=== PATIENT | male | born 1970 | race African-American/Black ===

== ENCOUNTER 2022-10-05 18:28 | Inpatient (IN) | payer MEDICAID ==
[~2022-10-05] VITALS: Ht 175.3 cm; Wt 54.4 kg
[2022-10-05 19:54] LABS: HEMATOCRIT. 31.1 % (42.0-52.0); HEMOGLOBIN. 9.9 g/dL (14.0-18.0); MEAN CORPUSCULAR HEMOGLOBIN 22.5 pg (28.0-32.0); MEAN CORPUSCULAR VOLUME 70.4 fL (80.0-94.0); MEAN PLATELET VOLUME 6.7 fl (7.4-10.4); PLATELET 345 x1000/uL (130-400); RED BLOOD CELL COUNT 4.41 mill/uL (4.7-6.1); RED CELL DISTRIBUTION WIDTH 22.2 % (11.6-14.6)
[2022-10-05 20:01] LABS: CHLORIDE 80 mEq/L (98-107)
[2022-10-05 20:03] LABS: INR 1.1; PROTHROMBIN TIME 11.4 sec (9.6-11.0)
[2022-10-05 20:12] LABS: ETHANOL BLOOD 101 mg/dL (-10)
[2022-10-05] MEDS ORDERED: KCL 20MEQ/100ML PREMIX 100 ML IV ONE (21:00)
[2022-10-05] MEDS ORDERED: MAGNESIUM OXIDE 400MG TABLET PO SCH (21:00)
[2022-10-05] MEDS ORDERED: POTASSIUM CHLORIDE 20MEQ TABLET SR PO ONE (21:00)
[2022-10-05] MEDS ORDERED: SODIUM CHLORIDE 0.9% 1,000 ML IV ONE (21:00)
[2022-10-05 21:16] LABS: PLATELET ESTIMATE NORMAL
[2022-10-05] MEDS ORDERED: ONDANSETRON HCL 4MG/2ML INJ IV ONE (21:30)
[2022-10-05] MEDS ORDERED: SODIUM CHLORIDE 3% 500ML IV SOLN IV ONE (21:30)
[2022-10-05] MEDS ORDERED: DESMOPRESSIN ACETATE 4MCG/ML AMP IV ONE (21:30)
[2022-10-05] MEDS ORDERED: SODIUM CHLORIDE 3% 150 ML IV NR (21:45)
[2022-10-05] MEDS ORDERED: MORPHINE SULFATE 4 MG/ML CPJ (NOT FOR IM USE) IV ONE (22:45)
[2022-10-06] MEDS ORDERED: PANTOPRAZOLE SODIUM 40 MG/VIAL IV ONE (00:30)
[2022-10-06] MEDS ORDERED: ACETAMINOPHEN 325MG TABLET PO PRN (00:30)
[2022-10-06] MEDS ORDERED: LORAZEPAM 2MG/ML CPJ IV PRN (00:30)
[2022-10-06] MEDS ORDERED: MAGNESIUM/ALUMINUM HYDROXIDE/SIMETHICONE 30ML UDC PO PRN (00:30)
[2022-10-06] MEDS ORDERED: DOCUSATE SODIUM 100MG CAPSULE PO PRN (00:30)
[2022-10-06] MEDS ORDERED: METOCLOPRAMIDE HCL 10MG/2ML VIAL IV ONE (00:30)
[2022-10-06] MEDS ORDERED: ONDANSETRON HCL 4MG/2ML INJ IV PRN (00:30)
[2022-10-06] MEDS ORDERED: CLONIDINE 0.1MG TABLET PO PRN (00:30)
[2022-10-06] MEDS ORDERED: GUAIFENESIN 200MG/10ML SUGAR FREE UDC PO PRN (00:30)
[2022-10-06] MEDS ORDERED: IPRATROPIUM/ALBUTEROL 0.5-3(2.5)MG/3ML NEB HHN PRN (00:30)
[2022-10-06] MEDS ORDERED: SODIUM CHLORIDE 0.9% 1,000 ML IV SCH ×3 (00:30→17:00)
[2022-10-06] MEDS ORDERED: METH-773 PO (00:56)
[2022-10-06] MEDS ORDERED: MVI, ADULT NO.1 10 ML, FOLIC ACID 1 MG, THIAMINE HCL 100 MG in SODIUM CHLORIDE 0.9% 1,0... IV SCH ×4 (02:00)
[2022-10-06] MEDS ORDERED: POTASSIUM CHLORIDE INJ 30 MEQ in DEXT 5%/0.9% NACL 1,000 ML IV ONE (03:00)
[2022-10-06 05:03] LABS: HEMATOCRIT. 25.3 % (42.0-52.0); HEMOGLOBIN. 8.2 g/dL (14.0-18.0); MEAN CORPUSCULAR HEMOGLOBIN 22.8 pg (28.0-32.0); MEAN CORPUSCULAR VOLUME 70.3 fL (80.0-94.0); MEAN PLATELET VOLUME 6.9 fl (7.4-10.4); PLATELET 295 x1000/uL (130-400); RED CELL DISTRIBUTION WIDTH 22.3 % (11.6-14.6)
[2022-10-06 05:06] LABS: CHLORIDE 92 mEq/L (98-107)
[2022-10-06 05:36] LABS: CREATINE KINASE 232 IU/L (39-308)
[2022-10-06 05:37] LABS: HDL CHOLESTEROL 90 mg/dL (40-59); LDL CHOLESTEROL 18 mg/dL (5-100)
[2022-10-06 05:51] LABS: FOLIC ACID (FOLATE) SERUM >20 ng/mL ng/mL (>5.38); VITAMIN B12 SERUM 912 pg/mL (211-911)
[2022-10-06] MEDS ORDERED: CHLORDIAZEPOXIDE 25MG CAPSULE PO SCH (06:00)
[2022-10-06 06:44] LABS: TOTAL IRON BINDING CAPACITY 349 ug/dL (250-450)
[2022-10-06 07:28] LABS: FERRITIN 15 ng/mL (22-322)
[2022-10-06 07:36] LABS: PLATELET ESTIMATE NORMAL
[2022-10-06] MEDS ORDERED: PANTOPRAZOLE 40MG DR TABLET PO SCH (07:50)
[2022-10-06] MEDS: METHOCARBAMOL 500MG TABLET PO SCH ×3 (08:55→16:27)
[2022-10-06] MEDS: HYDROCODONE/ACETAMINOPHEN 5/325MG TABLET PO PRN ×3 (08:56→21:09)
[2022-10-06] MEDS: ENOXAPARIN 40MG/0.4ML SYR SUBCUT SCH (08:56)
[2022-10-06] MEDS ORDERED: PANTOPRAZOLE SODIUM 40 MG/VIAL IV SCH (09:00)
[2022-10-06] MEDS: FERROUS SULFATE 325MG TABLET PO SCH (09:00)
[2022-10-06] MEDS ORDERED: CHLORDIAZEPOXIDE 25MG CAPSULE PO PRN (12:30)
[2022-10-06 12:45] VITALS: BP 140/91; PULSE 91; RESP 18; TEMP 97.9
[2022-10-06] MEDS ORDERED: MAGNESIUM 4 G PREMIX 100 ML IV SCH (13:00)
[2022-10-06] MEDS ORDERED: KCL 20MEQ/100ML PREMIX 100 ML IV SCH (13:00)
[2022-10-06 14:00] VITALS: BP 145/91; PULSE 85; RESP 16; TEMP 97.9
[2022-10-06] MEDS: KCL 20MEQ/100ML PREMIX 100 ML IV SCH ×2 (15:21→16:24)
[2022-10-06 16:00] VITALS: BP 135/89; PULSE 88; RESP 16; TEMP 98
[2022-10-06] MEDS ORDERED: NALOXONE HCL 0.4MG/ML VIAL IV PRN (17:30)
[2022-10-06] MEDS: DEXT 5%/0.9% NACL 1,000 ML IV SCH (17:43)
[2022-10-06 17:50] LABS: PHOSPHORUS 2.1 mg/dL (2.5-4.9)
[2022-10-06 17:54] LABS: CREATINE KINASE 206 IU/L (39-308)
[2022-10-06 18:00] VITALS: BP 138/89; PULSE 103; RESP 18; TEMP 97.9
[2022-10-06 20:00] VITALS: BP 143/80; PULSE 106; TEMP 97.8; TEMP 99.3
[2022-10-06] MEDS: PANTOPRAZOLE SODIUM 40 MG/VIAL IV SCH (21:08)
[2022-10-06 22:00] VITALS: BP 138/75; PULSE 88; RESP 4
[2022-10-06] MEDS ORDERED: POTASSIUM CHLORIDE 20MEQ TABLET SR PO NR (22:00)
[2022-10-06 22:02] LABS: CHLORIDE 97 mEq/L (98-107)
[2022-10-07] VITALS (10 sets, daily range): BP systolic 112–140; BP diastolic 68–99; PULSE 85–109; RESP 19–22; TEMP 98–98.4
[2022-10-07] MEDS: HYDROCODONE/ACETAMINOPHEN 5/325MG TABLET PO PRN ×3 (03:04→20:47)
[2022-10-07 03:43] LABS: CLARITY URINE CLEAR (CLEAR); COLOR URINE YELLOW (YELLOW); KETONES URINE NEGATIVE (NEGATIVE); LEUKOCYTE ESTERASE URINE NEGATIVE (NEGATIVE); NITRITE URINE NEGATIVE (NEGATIVE); OCCULT BLOOD URINE NEGATIVE (NEGATIVE); PROTEIN URINE NEGATIVE (NEGATIVE); SPECIFIC GRAVITY URINE 1.004 (1.005-1.030); UROBILINOGEN URINE 0.2 E.U./dL (0.2-1.0)
[2022-10-07 03:54] LABS: *AMPHETAMINES SCREEN URINE NEGATIVE (NEGATIVE); *BARBITURATES SCREEN URINE NEGATIVE (NEGATIVE); *BENZODIAZEPINES SCREEN URINE NEGATIVE (NEGATIVE); *COCAINE SCREEN URINE NEGATIVE (NEGATIVE); CANNABINOID URINE SCREEN NEGATIVE (NEGATIVE); METHADONE URINE SCREEN NEGATIVE (NEGATIVE); OPIATES URINE SCREEN NEGATIVE (NEGATIVE); PHENCYCLIDINE URINE SCREEN NEGATIVE (NEGATIVE)
[2022-10-07] MEDS: DEXT 5%/0.9% NACL 1,000 ML IV SCH ×2 (05:45→20:36)
[2022-10-07] MEDS: PANTOPRAZOLE SODIUM 40 MG/VIAL IV SCH ×2 (10:22→20:36)
[2022-10-07] MEDS: THIAMINE HCL 100MG TABLET PO SCH (10:23)
[2022-10-07] MEDS: METHOCARBAMOL 500MG TABLET PO SCH ×3 (10:23→18:18)
[2022-10-07] MEDS: ENOXAPARIN 40MG/0.4ML SYR SUBCUT SCH (10:23)
[2022-10-07] MEDS: FERROUS SULFATE 325MG TABLET PO SCH (10:23)
[2022-10-07] MEDS ORDERED: POTASSIUM CHLORIDE 20MEQ TABLET SR PO NR (11:45)
[2022-10-07] MEDS ORDERED: POTASSIUM PHOS,M-BASIC-D-BASIC 15 MMOL in DEXT 5% WATER 245 ML IV NR (13:00)
[2022-10-07 19:53] LABS: CHLORIDE 100 mEq/L (98-107); HEMATOCRIT 28.1 % (42.0-52.0); HEMOGLOBIN 9.1 g/dL (14.0-18.0); MEAN CORPUSCULAR HEMOGLOBIN 23.2 pg (28.0-32.0); MEAN CORPUSCULAR VOLUME 71.2 fL (80.0-94.0); PLATELET 251 x1000/uL (130-400); RED BLOOD CELL COUNT 3.94 mill/uL (4.7-6.1); RED CELL DISTRIBUTION WIDTH 22.7 % (11.6-14.6)
[2022-10-07 20:10] LABS: T4 FREE 0.97 ng/dL (0.76-1.46)
[2022-10-08] VITALS: BP 131/79; PULSE 87; TEMP 98.2
[2022-10-08 02:00] VITALS: BP 140/89; PULSE 72; RESP 20
[2022-10-08] MEDS: HYDROCODONE/ACETAMINOPHEN 5/325MG TABLET PO PRN ×2 (02:49→08:37)
[2022-10-08 04:00] VITALS: BP 151/67; PULSE 82; RESP 19; TEMP 98.3
[2022-10-08 06:00] VITALS: BP 131/78; PULSE 69
[2022-10-08 07:23] LABS: HEMATOCRIT 28.5 % (42.0-52.0); HEMOGLOBIN 9.1 g/dL (14.0-18.0); MEAN CORPUSCULAR HEMOGLOBIN 22.9 pg (28.0-32.0); MEAN CORPUSCULAR VOLUME 71.9 fL (80.0-94.0); PLATELET 243 x1000/uL (130-400); RED BLOOD CELL COUNT 3.96 mill/uL (4.7-6.1); RED CELL DISTRIBUTION WIDTH 22.5 % (11.6-14.6)
[2022-10-08 08:00] VITALS: BP 144/83; PULSE 83; RESP 20; TEMP 97.5
[2022-10-08 09:14] LABS: CHLORIDE 103 mEq/L (98-107)
[2022-10-08] MEDS: FERROUS SULFATE 325MG TABLET PO SCH (09:20)
[2022-10-08] MEDS: PANTOPRAZOLE SODIUM 40 MG/VIAL IV SCH (09:20)
[2022-10-08] MEDS: THIAMINE HCL 100MG TABLET PO SCH (09:21)
[2022-10-08] MEDS: METHOCARBAMOL 500MG TABLET PO SCH ×3 (09:21→16:04)
[2022-10-08] MEDS: ENOXAPARIN 40MG/0.4ML SYR SUBCUT SCH (09:21)
[2022-10-08] MEDS: DEXT 5%/0.9% NACL 1,000 ML IV SCH (09:25)
[2022-10-08 09:28] LABS: PHOSPHORUS 3.6 mg/dL (2.5-4.9)
[2022-10-08 13:00] VITALS: BP 131/78; PULSE 69; TEMP 98.6; O2SAT 100
== END 2022-10-08 20:49 | disposition home or self-care (01) | DRG 426 ==
LOC: ER 18:28 → MICUSO 23:46 → ENRESERV 10-06 00:08 → MICUSO 10-06 02:59 → 5EST 10-06 12:51
PROVIDERS: ADMIT Internal Medicine; ATTEND Internal Medicine
DX: E87.1 Hypo-osmolality and hyponatremia (principal); E46 Unspecified protein-calorie malnutrition; E83.39 Other disorders of phosphorus metabolism; E83.51 Hypocalcemia; E87.8 Other disorders of electrolyte and fluid balance, not elsewhere classified; D50.9 Iron deficiency anemia, unspecified; E83.42 Hypomagnesemia; R74.8 Abnormal levels of other serum enzymes; F10.929 Alcohol use, unspecified with intoxication, unspecified; E87.6 Hypokalemia; G40.909 Epilepsy, unspecified, not intractable, without status epilepticus; G89.29 Other chronic pain; Y90.5 Blood alcohol level of 100-119 mg/100 ml; M54.9 Dorsalgia, unspecified; Z79.899 Other long term (current) drug therapy; Z87.828 Personal history of other (healed) physical injury and trauma; Z68.1 Body mass index [BMI] 19.9 or less, adult; Z82.0 Family history of epilepsy and other diseases of the nervous system
CPT/HCPCS: 36415; 71045; 80048; 80053; 80061; 80305; 80307; 80320; 80329; 81003; 82140; 82550; 82607; 82728; 82746; 83036; 83540; 83550; 83605; 83735; 83880; 84100; 84439; 84443; 84484; 85025; 85027; 93005; 93970; 99285; C9113; J1650; J2270; J2405; J2597; J2765; J3411; J3475; J3480; J3490; J7030; J7042; J7060; G0480